=== PATIENT | female | born 1960 | race Caucasian/White ===

== ENCOUNTER 2021-05-29 12:59 | Emergency (ER) | payer SELFPAY ==
[2021-05-29 18:17] LABS: BASOPHIL 0.5 % (0-2); EOSINOPHIL 1.2 % (0-5); HCT 45.2 % (37.0-47.0); MCH 29.6 pg (25.0-31.0); MCHC 33.2 g/dL (32.0-36.0); MCV 89.2 fL (78.0-100.0); MONOCYTE 11.6 % (0-12); MPV 9.8 fL (6.0-9.5); NEUTROPHIL 56.5 % (41-80); NRBC 0; PLT 236 K/uL (150-400); RBC 5.07 M/uL (4.20-5.40); RDW 13.2 % (11.5-14.0); WBC 4.1 K/uL (4.0-10.5)
[2021-05-29] MEDS ORDERED: PHENERGAN25 M1 PO (18:24)
[2021-05-29 18:36] LABS: ALBUMIN 3.9 g/dL (3.4-5.0); BILIRUBIN - TOTAL 0.3 mg/dL (0.2-1.0); CREATININE 0.5 mg/dL (0.51-0.95); GLOBULIN (CALCULATION) 3.9 g/dL; POTASSIUM 3.8 mmol/L (3.5-5.1); TOTAL PROTEIN 7.8 g/dL (6.4-8.2)
== END 2021-05-29 21:11 | disposition home or self-care (01) ==
LOC: FER 12:59
PROVIDERS: Emergency Medicine
DX: U07.1 COVID-19 (principal)
CPT/HCPCS: 36415; 80053; 84484; 85025; 99283; J7030; U0002